=== PATIENT | male | born 1995 | race Caucasian/White ===

== ENCOUNTER 2016-07-06 23:07 | Emergency (ER) | payer OTHER ==
[~2016-07-06] VITALS: Ht 182.9 cm; Wt 135.5 kg
[~2016-07-06 23:07] MED LIST: ANAPROX DS550 M1 PO; AUGMENTIN875 MG PO; AZITHROMYCIN250 MG PO; FLEXERIL10 MG PO; IBUPROFEN600 MG PO; KEFLEX500 MG PO; LORATADINE10 M2; LORTAB 5-325 M1 EACH PO; LOTRIMIN ULTRA12 GM TP; MOBIC7.5 MG PO; MOTRIN IB200 MG PO; MOTRIN800 MG PO; MUCINEX D ER T1 EACH PO; OMEPRAZOLE40 M1 PO; PAXIL20 MG PO; ROBITUSSIN AC,T10 ML PO; TESSALON PERLE100 MG PO; ULTRAM50 MG PO; VIBRAMYCIN100 MG PO
[2016-07-07] MEDS ORDERED: BACTROBAN CREAM15 GM TP (00:55)
[2016-07-07] MEDS ORDERED: NYSTATIN15 GM TP (00:55)
[2016-07-07 01:02] VITALS: BP 156/86
== END 2016-07-07 01:03 | disposition home or self-care (01) ==
LOC: EXP 23:07 → EME 23:07 → EXP 07-07 01:03
DX: R21 Rash and other nonspecific skin eruption (principal); K21.9 Gastro-esophageal reflux disease without esophagitis
CPT/HCPCS: 99281; 99283